=== PATIENT | male | born 1965 | race Hispanic/Latino ===

== ENCOUNTER 2020-01-24 13:40 | Inpatient (IN) | payer OTHER, SELFPAY ==
[~2020-01-24] VITALS: Ht 154.9 cm; Wt 112.7 kg
[2020-01-24 14:18] LABS: ABG BASE EXCESS -12.6 mmol/L (-2.0-3.0); ABG HCO3 12.1 mmol/L (21.0-28.0); ABG OXYGEN SATURATION 92.7 % (95.0-99.0); ABG PCO2 26 mmHg (35-48)
[2020-01-24 14:30] LABS: BASOPHILS % (AUTO) 0.2 % (0.0-5.0); HEMATOCRIT 40.5 % (42-54); LYMPHOCYTES % (AUTO) 12.5 % (21.0-51.0); MEAN CORPUSCULAR HEMOGLOBIN 29.2 pg (27.0-33.0); MEAN CORPUSCULAR HGB CONC 34.3 g/dL (32.0-36.0); MEAN CORPUSCULAR VOLUME 85.1 fL (79-99); MONOCYTES % (AUTO) 5.8 % (3.0-13.0); PLATELET COUNT (AUTO) 144 K/uL (130-400); RED BLOOD CELL COUNT(AUTO) 4.76 MIL/uL (4.50-6.20); RED CELL DISTRIBUTION WIDTH 13.2 % (11.0-15.5); WHITE BLOOD COUNT (AUTO) 6.2 K/uL (4.8-10.8)
[2020-01-24] MEDS ORDERED: DEXAMETHASONE SOD PHOSPHATE 10MG/ML 1ML VIAL ONE (14:30)
[2020-01-24] MEDS ORDERED: AZITHROMYCIN 500MG+NS 250ML 250 ML IV ONE (14:30)
[2020-01-24] MEDS ORDERED: SODIUM CHLORIDE 0.9% 50 ML IV ONE (14:30)
[2020-01-24] MEDS ORDERED: CEFTRIAXONE SODIUM 1 GM ONE (14:31)
[2020-01-24 14:43] LABS: INR 0.93 (0.85-1.15); PARTIAL THROMBOPLASTIN TIME 32.2 SEC (26.3-35.5); PROTHROMBIN TIME 10.1 SEC (9.6-11.6)
[2020-01-24 14:56] LABS: B-TYPE NATRIURETIC PEPTIDE 39 pg/mL (0-100)
[2020-01-24 14:57] LABS: ALANINE AMINOTRANSFERASE 31 U/L (12-78); ALBUMIN 2.9 g/dL (3.5-5.0); ASPARTATE AMINOTRANSFERASE 41 U/L (10-37); BILIRUBIN,TOTAL 0.4 mg/dL (0.2-1.0); CARBON DIOXIDE 17 mmol/L (21-32); CHLORIDE 95 mmol/L (101-111); CREATINE KINASE, TOTAL 52 U/L (21-232); CREATININE 4.1 mg/dL (0.5-1.5); GLOMERULAR FILTR. RATE CALC 16 mL/min (>60); MYOGLOBIN 135 ng/mL (10-92); POTASSIUM 5.4 mmol/L (3.5-5.1); SODIUM SERUM 126 mmol/L (136-145); TOTAL PROTEIN, SERUM 7.7 g/dL (6.0-8.3); TROPONIN I < 0.04 ng/mL (0.00-0.06); UREA NITROGEN, BLOOD 54 mg/dL (7-18)
[2020-01-24 14:59] LABS: GLUCOSE,RANDOM 538 mg/dL (70-105)
[2020-01-24] MEDS ORDERED: ALBUTEROL INHALER 90MCG/INH IH ONE (15:23)
[2020-01-24] MEDS ORDERED: INSULIN REGULAR, HUMAN 3ML 100 UNIT in SODIUM CHLORIDE 0.9% 99 ML IV PRN ×2 (16:45)
[2020-01-24] MEDS ORDERED: LACTULOSE 20 GM/30 ML UDCUP PO PRN (17:00)
[2020-01-24] MEDS ORDERED: ONDANSETRON HCL 4 MG/2 ML VIAL IV PRN (17:00)
[2020-01-24] MEDS ORDERED: DOXYCYCLINE 100MG+NS 250ML IV SCH (17:00)
[2020-01-24] MEDS ORDERED: ACETAMINOPHEN 325 MG TAB PO PRN ×2 (17:00)
[2020-01-24] MEDS ORDERED: ERGOCALCIFEROL (VITAMIN D2) 50,000 UNIT CAPSULE PO ONE (17:00)
[2020-01-24] MEDS: CEFTRIAXONE SODIUM 1 GM IVP SCH (17:00)
[2020-01-24 17:15] LABS: APPEARANCE,URINE CLOUDY (CLEAR); BILIRUBIN,URINE NEGATIVE (NEGATIVE); COLOR,URINE YELLOW (YELLOW); GLUCOSE, URINE (UA) >=1000 mg/dL (NEGATIVE); KETONES,URINE NEGATIVE (NEGATIVE); LEUKOCYTE ESTERASE ,URINE NEGATIVE (NEGATIVE); NITRATE,URINE POSITIVE (NEGATIVE); OCCULT BLOOD,URINE TRACE-INTACT (NEGATIVE); PROTEIN,URINE 100 mg/dL (NEGATIVE); UROBILINOGEN,URINE 0.2 mg/dL (0.2-1.0)
[2020-01-24] MEDS ORDERED: DEXTROSE 5 %-0.45 % NACL 1,000 ML IV PRN (17:23)
[2020-01-24] MEDS ORDERED: SODIUM CHLORIDE 0.9% 1000ML 1,000 ML IV SCH ×2 (17:23)
[2020-01-24 17:30] LABS: BACTERIA,URINE Few /HPF (None Seen)
[2020-01-24] MEDS ORDERED: ALBUTEROL INHALER 90MCG/INH IH PRN (17:30)
[2020-01-24] MEDS ORDERED: POTASSIUM CHLORIDE 10MEQ/100ML 100 ML IV PRN (17:30)
[2020-01-24 17:33] LABS: AMORPHOUS SEDIMENT,UR Rare /LPF (None Seen); FINE GRANULAR CASTS,URINE 0-2 /LPF (None Seen); SQUAMOUS EPITHELIAL CELL,UR Few /HPF (0-2)
[2020-01-24] MEDS ORDERED: DEXAMETHASONE SOD PHOSPHATE 10MG/ML 1ML VIAL IV SCH (17:45)
[2020-01-24] MEDS ORDERED: DOXYCYCLINE 100MG+NS 250ML 250 ML IV ONE (20:24)
[2020-01-24] MEDS: DOXYCYCLINE 100MG+NS 250ML 250 ML IV SCH (21:00)
[2020-01-24] MEDS: ENOXAPARIN SODIUM 120 MG/0.8ML SQ SCH (21:00)
[2020-01-24] MEDS: ACETYLCYSTEINE 600 MG CAPSULE PO SCH (21:00)
[2020-01-24 23:07] LABS: CREATININE 3.2 mg/dL (0.5-1.5); POTASSIUM 4.4 mmol/L (3.5-5.1)
[2020-01-25] MEDS ORDERED: DEXTROSE 5 %-0.45 % NACL 1,000 ML IV ONE (00:23)
[2020-01-25 03:08] LABS: CREATININE 2.8 mg/dL (0.5-1.5); POTASSIUM 4.5 mmol/L (3.5-5.1)
[2020-01-25] MEDS ORDERED: CEFTRIAXONE SODIUM 1 GM ONE ×2 (03:45→07:42)
[2020-01-25 04:27] LABS: ABG BASE EXCESS -9.1 mmol/L (-2.0-3.0); ABG HCO3 15.7 mmol/L (21.0-28.0); ABG OXYGEN SATURATION 81.3 % (95.0-99.0); ABG PCO2 31 mmHg (35-48)
[2020-01-25] MEDS: CEFTRIAXONE SODIUM 1 GM IVP SCH ×2 (05:00→17:00)
[2020-01-25 05:33] LABS: BASOPHILS % (AUTO) 0.1 % (0.0-5.0); LYMPHOCYTES % (AUTO) 9.2 % (21.0-51.0); MEAN CORPUSCULAR HGB CONC 34.4 g/dL (32.0-36.0); MEAN CORPUSCULAR VOLUME 84.1 fL (79-99); MONOCYTES % (AUTO) 7.5 % (3.0-13.0); NEUTROPHILS % (AUTO) 82.3 % (40.0-77.0); PLATELET COUNT (AUTO) 198 K/uL (130-400); RED BLOOD CELL COUNT(AUTO) 5.11 MIL/uL (4.50-6.20); RED CELL DISTRIBUTION WIDTH 12.9 % (11.0-15.5); WHITE BLOOD COUNT (AUTO) 17.3 K/uL (4.8-10.8)
[2020-01-25 06:11] LABS: ALBUMIN 3.1 g/dL (3.5-5.0); BILIRUBIN,TOTAL 0.7 mg/dL (0.2-1.0); CREATININE 2.7 mg/dL (0.5-1.5); CRP QUANTITATIVE 46.6 mg/L (0.00-9.0); POTASSIUM 4.6 mmol/L (3.5-5.1); TOTAL PROTEIN, SERUM 8.1 g/dL (6.0-8.3)
[2020-01-25] MEDS ORDERED: ASCORBIC ACID 500 MG TAB ONE (07:40)
[2020-01-25] MEDS ORDERED: FAMOTIDINE 20MG TAB 20 MG TAB ONE (07:41)
[2020-01-25] MEDS ORDERED: DEXAMETHASONE SOD PHOSPHATE 4 MG/ML 5ML VIAL ONE (07:41)
[2020-01-25] MEDS ORDERED: ACETYLCYSTEINE 600 MG CAPSULE ONE ×2 (07:41→19:40)
[2020-01-25] MEDS ORDERED: ZINC SULFATE 220 CAPSULE ONE (07:41)
[2020-01-25] MEDS ORDERED: DOXYCYCLINE 100MG+NS 250ML 250 ML IV ONE ×2 (07:42→19:41)
[2020-01-25] MEDS ORDERED: ENOXAPARIN SODIUM 120 MG/0.8ML SQ ONE ×2 (07:42→19:41)
[2020-01-25] MEDS: ZINC SULFATE 220 CAPSULE PO SCH (09:00)
[2020-01-25] MEDS: DEXAMETHASONE SOD PHOSPHATE 10MG/ML 1ML VIAL IV SCH ×3 (09:00→21:00)
[2020-01-25] MEDS: ACETYLCYSTEINE 600 MG CAPSULE PO SCH ×2 (09:00→21:00)
[2020-01-25] MEDS: DOXYCYCLINE 100MG+NS 250ML 250 ML IV SCH ×2 (09:00→21:00)
[2020-01-25] MEDS: FAMOTIDINE 20MG TAB 20 MG TAB PO SCH (09:00)
[2020-01-25] MEDS: ENOXAPARIN SODIUM 120 MG/0.8ML SQ SCH ×2 (09:00→21:00)
[2020-01-25] MEDS ORDERED: ENOXAPARIN SODIUM 40 MG/0.4 ML SYRINGE SQ SCH (09:00)
[2020-01-25] MEDS: ASCORBIC ACID 500 MG TAB PO SCH (09:00)
[2020-01-25] MEDS: FUROSEMIDE 10 MG/ML 4ML VIAL IV SCH (09:15)
[2020-01-25 10:06] LABS: CREATININE 2.3 mg/dL (0.5-1.5); POTASSIUM 4.7 mmol/L (3.5-5.1)
[2020-01-25 14:05] LABS: AMPHET/METH SCREEN,URINE NEGATIVE (NEGATIVE); BARBITURATE SCREEN, URINE NEGATIVE (NEGATIVE); BENZODIAZEPINES SCREEN,URINE NEGATIVE (NEGATIVE); CANNABINOID SCREEN,URINE NEGATIVE (NEGATIVE); COCAINE SCREEN,URINE NEGATIVE (NEGATIVE); OPIATE SCREEN,URINE NEGATIVE (NEGATIVE); PHENCYCLIDINE SCREEN,URINE NEGATIVE (NEGATIVE)
--- NOTE | 2020-01-25 14:19 | NUR ---
CHART CHECK COMPLETED. Pt IS A 55 Y.O. MALE ADMITTED SECONDARY TO SUSPECT COVID 19. Pt HAS A PAST MEDICAL HISTORY SIGNIFICANT FOR HTN, DM, APPENDECTOMY. Pt CURRENTLY WITH NO DIET IN PLACE. PLEASE REQUEST FORMAL SKILLED SPEECH/SWALLOW EVALUATION IF Pt PRESENTS WITH +S/S OF ASPIRATION SUCH COUGH RESPONSE, THROAT CLEAR, OR WET VOCAL QUALITY DURING P.O. Addendum: 01/25/20 at [address] Amended: Links added.
[2020-01-25 14:28] LABS: CREATININE 2.2 mg/dL (0.5-1.5); POTASSIUM 4.8 mmol/L (3.5-5.1)
[2020-01-25] MEDS ORDERED: FUROSEMIDE 10 MG/ML 4ML VIAL ONE (16:12)
[2020-01-25] MEDS ORDERED: INSULIN REGULAR, HUMAN 3ML 100 UNIT in SODIUM CHLORIDE 0.9% 99 ML IV PRN ×2 (16:15)
[2020-01-25] MEDS ORDERED: DEXAMETHASONE SOD PHOSPHATE 10MG/ML 1ML VIAL ONE (16:35)
--- NOTE | 2020-01-25 17:00 | NUR ---
IA- SPOUSE W SPOUSE FOR DC PLANNING ANGELA REDDY RN SPOKE W SPOUSE MURRAY COSTELLO FOR CM HEMANT CARRANZA IS INDEPENDENT, DRIVE, UNEMPLOYED, NO DME EXCEPT CPAP, STATS SEE DR. LUQUE PCP, DCP [place], [place] TO FOLLOW Addendum: 01/26/20 at 2058 by KARYN MANRIQUEZ RN CM Amended: Links added.
[2020-01-25] MEDS ORDERED: INSULIN HUMULIN R 100 UNIT/ML 3ML SQ SCH (18:00)
[2020-01-25] MEDS ORDERED: SODIUM BICARBONATE 650 MG TAB ONE (19:40)
[2020-01-25 20:40] LABS: CREATININE 2.3 mg/dL (0.5-1.5); POTASSIUM 4.6 mmol/L (3.5-5.1)
[2020-01-25] MEDS: SODIUM BICARBONATE 650 MG TAB PO SCH (21:00)
[2020-01-25 23:19] LABS: CREATININE 2.2 mg/dL (0.5-1.5); POTASSIUM 4.8 mmol/L (3.5-5.1)
[2020-01-26] VITALS (18 sets, daily range): BP systolic 113–182; BP diastolic 75–102
[2020-01-26] MEDS ORDERED: HYDROXYZINE HCL 25 MG TABLET ONE (00:25)
[2020-01-26 01:01] LABS: CREATININE 2.1 mg/dL (0.5-1.5); MAGNESIUM 1.6 mg/dL (1.80-2.40); POTASSIUM 4.6 mmol/L (3.5-5.1)
[2020-01-26] MEDS ORDERED: MAGNESIUM 2GM PREMIX 50ML 50 ML IV ONE (02:18)
[2020-01-26 03:42] LABS: ABG BASE EXCESS -7.4 mmol/L (-2.0-3.0); ABG HCO3 16.7 mmol/L (21.0-28.0); ABG OXYGEN SATURATION 89.7 % (95.0-99.0); ABG PCO2 31 mmHg (35-48)
[2020-01-26] MEDS: CEFTRIAXONE SODIUM 1 GM IVP SCH ×2 (05:00→15:52)
[2020-01-26] MEDS ORDERED: HYDR-4154 PO (08:07)
[2020-01-26] MEDS ORDERED: LORA-705 PO (08:07)
[2020-01-26] MEDS ORDERED: DEXA6TAB PO (08:07)
[2020-01-26] MEDS ORDERED: LOSA100T58 PO (08:07)
[2020-01-26] MEDS ORDERED: CLOP75TA32 PO (08:07)
[2020-01-26] MEDS ORDERED: METO100T14 PO (08:07)
[2020-01-26] MEDS ORDERED: ALBUT (08:07)
[2020-01-26] MEDS ORDERED: DOXYCYC MONO PO (08:07)
[2020-01-26] MEDS ORDERED: NOVOLIN SQ (08:12)
[2020-01-26] MEDS ORDERED: IPRAHFA IH (08:12)
[2020-01-26 08:22] LABS: BASOPHILS % (AUTO) 0.2 % (0.0-5.0); HEMATOCRIT 40.8 % (42-54); LYMPHOCYTES % (AUTO) 6.6 % (21.0-51.0); MEAN CORPUSCULAR HEMOGLOBIN 28.5 pg (27.0-33.0); MEAN CORPUSCULAR HGB CONC 34.1 g/dL (32.0-36.0); MEAN CORPUSCULAR VOLUME 83.6 fL (79-99); NEUTROPHILS % (AUTO) 83.7 % (40.0-77.0); PLATELET COUNT (AUTO) 205 K/uL (130-400); RED BLOOD CELL COUNT(AUTO) 4.88 MIL/uL (4.50-6.20); RED CELL DISTRIBUTION WIDTH 13.4 % (11.0-15.5); WHITE BLOOD COUNT (AUTO) 16.2 K/uL (4.8-10.8)
[2020-01-26 08:42] LABS: CRP QUANTITATIVE 37.6 mg/L (0.00-9.0); PHOSPHORUS 3.1 mg/dL (2.5-4.9); POTASSIUM 4.6 mmol/L (3.5-5.1)
[2020-01-26] MEDS ORDERED: FUROSEMIDE 10 MG/ML 4ML VIAL IV SCH (08:45)
[2020-01-26] MEDS: FAMOTIDINE 20MG TAB 20 MG TAB PO SCH (09:00)
[2020-01-26] MEDS: ZINC SULFATE 220 CAPSULE PO SCH (09:00)
[2020-01-26] MEDS: DOXYCYCLINE 100MG+NS 250ML 250 ML IV SCH ×2 (09:00→21:48)
[2020-01-26] MEDS: SODIUM BICARBONATE 650 MG TAB PO SCH ×2 (09:00→19:51)
[2020-01-26] MEDS: ENOXAPARIN SODIUM 120 MG/0.8ML SQ SCH ×2 (09:00→19:52)
[2020-01-26] MEDS: ACETYLCYSTEINE 600 MG CAPSULE PO SCH ×2 (09:00→19:51)
[2020-01-26] MEDS: DEXAMETHASONE SOD PHOSPHATE 10MG/ML 1ML VIAL IV SCH ×3 (09:00→19:48)
[2020-01-26] MEDS: ASCORBIC ACID 500 MG TAB PO SCH (09:00)
[2020-01-26] MEDS: FUROSEMIDE 10 MG/ML 4ML VIAL IV SCH (09:15)
[2020-01-26] MEDS ORDERED: FUROSEMIDE 10 MG/ML 4ML VIAL ONE (10:09)
--- NOTE | 2020-01-26 10:21 | NUR ---
RD NOTIFICATION Pt remains in ED with DKA and insulin drip. Spoke with RN, Pt to continue with NPO at this time. WBC 16.2, BUN 44, Cr 2.0, GFR 37. Suspected COVID. NRB in place. When medically feasible, Recommend advance diet as tolerated to 75gm, Renal non dialysis diet order. Recommend Vitamin C, Zinc, MVI daily supplementation when medically feasible. RD to continue to monitor. Please notify as additional nutrition concerns arise. Thank you.
[2020-01-26] MEDS ORDERED: PHARMACY COMMUNICATION MISC SCH (11:15)
[2020-01-26] MEDS ORDERED: DEXTROSE 5%-WATER 1,000 ML IV ONE (12:12)
[2020-01-26] MEDS: HYDRALAZINE HCL 20 MG/ML VIAL IV PRN (12:48)
[2020-01-26] MEDS: DEXTROSE 5 %-0.45 % NACL 1,000 ML IV PRN (12:57)
[2020-01-26 13:30] LABS: CREATININE 2.2 mg/dL (0.5-1.5); POTASSIUM 4.6 mmol/L (3.5-5.1)
[2020-01-26] MEDS ORDERED: DEXAMETHASONE SOD PHOSPHATE 4 MG/ML 1ML VIAL ONE (15:49)
[2020-01-26] MEDS ORDERED: LOSARTAN 100 MG TABLET ONE (15:59)
[2020-01-26] MEDS ORDERED: METOPROLOL TARTRATE 50 MG TAB ONE (15:59)
[2020-01-26] MEDS: METOPROLOL TARTRATE 50 MG TAB PO SCH (19:50)
[2020-01-26] MEDS: INSULIN REGULAR, HUMAN 3ML 100 UNIT in SODIUM CHLORIDE 0.9% 99 ML IV PRN ×4 (20:08→23:21)
[2020-01-27] VITALS (26 sets, daily range): BP systolic 99–235; BP diastolic 50–150
[2020-01-27] MEDS: DEXTROSE 5 %-0.45 % NACL 1,000 ML IV PRN (03:22)
[2020-01-27 04:11] LABS: ABG BASE EXCESS -6.6 mmol/L (-2.0-3.0); ABG HCO3 16.6 mmol/L (21.0-28.0); ABG OXYGEN SATURATION 93.9 % (95.0-99.0); ABG PCO2 28 mmHg (35-48)
[2020-01-27] MEDS: CEFTRIAXONE SODIUM 1 GM IVP SCH ×2 (04:35→19:22)
[2020-01-27 05:47] LABS: CRP QUANTITATIVE 28.2 mg/L (0.00-9.0)
[2020-01-27 08:10] LABS: BASOPHILS % (AUTO) 0.3 % (0.0-5.0); HEMATOCRIT 38.9 % (42-54); LYMPHOCYTES % (AUTO) 7.9 % (21.0-51.0); MEAN CORPUSCULAR HEMOGLOBIN 28.6 pg (27.0-33.0); MEAN CORPUSCULAR HGB CONC 33.9 g/dL (32.0-36.0); MEAN CORPUSCULAR VOLUME 84.2 fL (79-99); MONOCYTES % (AUTO) 6.7 % (3.0-13.0); NEUTROPHILS % (AUTO) 82.4 % (40.0-77.0); NUCLEATED RED BLOOD CELLS 0.2 % (0.0-0.19); PLATELET COUNT (AUTO) 238 K/uL (130-400); RED BLOOD CELL COUNT(AUTO) 4.62 MIL/uL (4.50-6.20); RED CELL DISTRIBUTION WIDTH 13.4 % (11.0-15.5)
[2020-01-27 08:57] LABS: ALBUMIN 2.7 g/dL (3.5-5.0); BILIRUBIN,TOTAL 0.4 mg/dL (0.2-1.0); CREATININE 2.1 mg/dL (0.5-1.5); POTASSIUM 4.7 mmol/L (3.5-5.1); TOTAL PROTEIN, SERUM 6.9 g/dL (6.0-8.3)
[2020-01-27] MEDS: FAMOTIDINE 20MG TAB 20 MG TAB PO SCH (09:08)
[2020-01-27] MEDS: ZINC SULFATE 220 CAPSULE PO SCH (09:08)
[2020-01-27] MEDS: ACETYLCYSTEINE 600 MG CAPSULE PO SCH ×2 (09:08→21:00)
[2020-01-27] MEDS: SODIUM BICARBONATE 650 MG TAB PO SCH ×2 (09:08→21:00)
[2020-01-27] MEDS: METOPROLOL TARTRATE 50 MG TAB PO SCH ×2 (09:09→21:00)
[2020-01-27] MEDS: ENOXAPARIN SODIUM 120 MG/0.8ML SQ SCH ×2 (09:09→22:03)
[2020-01-27] MEDS: ASCORBIC ACID 500 MG TAB PO SCH ×2 (09:09→09:20)
[2020-01-27] MEDS: FUROSEMIDE 10 MG/ML 4ML VIAL IV SCH (09:12)
[2020-01-27] MEDS: LOSARTAN 100 MG TABLET PO SCH (09:25)
[2020-01-27] MEDS: PHARMACY COMMUNICATION MISC SCH (10:30)
[2020-01-27] MEDS: DEXAMETHASONE SOD PHOSPHATE 10MG/ML 1ML VIAL IV SCH ×3 (12:11→22:22)
[2020-01-27] MEDS: DOXYCYCLINE 100MG+NS 250ML 250 ML IV SCH (12:12)
[2020-01-27] MEDS: HYDRALAZINE HCL 20 MG/ML VIAL IV PRN (15:11)
--- NOTE | 2020-01-27 16:17 | NUR ---
pt found standing at side of bed with 02 sat 70%. continues to take off nrb. tachypneic and labored pt back in bed. Dr. Vieira called. order for cpap 12 and 100% RT called. at bedside to set up cpap now.
[2020-01-27] MEDS ORDERED: LORAZEPAM 2 MG/ML 1 ML VIAL IVP PRN (17:00)
[2020-01-27] MEDS ORDERED: LORAZEPAM 2 MG/ML 1 ML VIAL ONE (17:01)
[2020-01-27] MEDS ORDERED: PROPOFOL 1000 MG/100 ML 100 ML IV ONE (19:48)
[2020-01-27] MEDS ORDERED: MIDAZOLAM 50MG-0.9% NS 50ML 50 ML BAG IV SCH (20:30)
[2020-01-27] MEDS ORDERED: FENTANYL 2500MCG+NS 250ML 250 ML IV ONE (20:37)
[2020-01-27] MEDS: DOXYCYCLINE HYCLATE 100 MG TABLET PO SCH (21:00)
[2020-01-27] MEDS ORDERED: SODIUM CHLORIDE 0.9% 250 ML IV ONE (23:12)
[2020-01-27 23:22] LABS: ABG BASE EXCESS -13.7 mmol/L (-2.0-3.0); ABG HCO3 14.7 mmol/L (21.0-28.0); ABG OXYGEN SATURATION 72.7 % (95.0-99.0); ABG PCO2 44 mmHg (35-48)
[2020-01-28] VITALS (38 sets, daily range): BP systolic 97–206; BP diastolic 52–107
[2020-01-28] MEDS ORDERED: ROCURONIUM BROMIDE 100 MG in SODIUM CHLORIDE 0.9% 100 ML IV SCH (00:15)
[2020-01-28] MEDS ORDERED: ROCURONIUM BROMIDE 10MG/1ML 5ML VL ONE (00:16)
[2020-01-28] MEDS ORDERED: METOPROLOL TARTRATE 1 MG/ML 5ML VIAL IV ONE (02:05)
[2020-01-28] MEDS: MIDAZOLAM 50MG-0.9% NS 50ML 50 ML IV SCH ×2 (02:44→02:45)
[2020-01-28 03:20] LABS: ABG BASE EXCESS -9.7 mmol/L (-2.0-3.0); ABG HCO3 16.4 mmol/L (21.0-28.0); ABG OXYGEN SATURATION 97.5 % (95.0-99.0); ABG PCO2 37 mmHg (35-48)
[2020-01-28] MEDS ORDERED: DEXTROSE 5%-WATER 1,000 ML IV ONE (03:43)
[2020-01-28] MEDS ORDERED: SODIUM BICARB 50MEQ 50ML VIAL ONE (03:43)
[2020-01-28] MEDS ORDERED: SODIUM BICARB 8.4% 50ML SYRING 150 MEQ in DEXTROSE 5%-WATER 1,000 ML IV SCH (03:45)
[2020-01-28] MEDS ORDERED: SODIUM CHLORIDE 0.9% 100 ML IV ONE (04:40)
[2020-01-28] MEDS: CEFTRIAXONE SODIUM 1 GM IVP SCH ×2 (05:07→17:12)
[2020-01-28 05:29] LABS: BASOPHILS % (AUTO) 0.4 % (0.0-5.0); HEMATOCRIT 37.9 % (42-54); LYMPHOCYTES % (AUTO) 6.8 % (21.0-51.0); MEAN CORPUSCULAR HEMOGLOBIN 28.3 pg (27.0-33.0); MEAN CORPUSCULAR HGB CONC 32.7 g/dL (32.0-36.0); MEAN CORPUSCULAR VOLUME 86.5 fL (79-99); MONOCYTES % (AUTO) 8.2 % (3.0-13.0); NEUTROPHILS % (AUTO) 79.6 % (40.0-77.0); PLATELET COUNT (AUTO) 245 K/uL (130-400); RED BLOOD CELL COUNT(AUTO) 4.38 MIL/uL (4.50-6.20); RED CELL DISTRIBUTION WIDTH 13.6 % (11.0-15.5); WHITE BLOOD COUNT (AUTO) 14.9 K/uL (4.8-10.8)
[2020-01-28 06:11] LABS: ALBUMIN 2.6 g/dL (3.5-5.0); BILIRUBIN,TOTAL 0.4 mg/dL (0.2-1.0); CREATININE 2.5 mg/dL (0.5-1.5); POTASSIUM 4.8 mmol/L (3.5-5.1); TOTAL PROTEIN, SERUM 6.9 g/dL (6.0-8.3)
[2020-01-28] MEDS: FUROSEMIDE 10 MG/ML 4ML VIAL IV SCH (09:15)
[2020-01-28] MEDS: METOPROLOL TARTRATE 50 MG TAB PO SCH ×2 (09:17→21:00)
[2020-01-28] MEDS: ZINC SULFATE 220 CAPSULE PO SCH (09:17)
[2020-01-28] MEDS: SODIUM BICARBONATE 650 MG TAB PO SCH ×2 (09:17→21:20)
[2020-01-28] MEDS: FAMOTIDINE 20MG TAB 20 MG TAB PO SCH (09:18)
[2020-01-28] MEDS: LOSARTAN 100 MG TABLET PO SCH (09:18)
[2020-01-28] MEDS: ACETYLCYSTEINE 600 MG CAPSULE PO SCH ×2 (09:18→21:20)
[2020-01-28] MEDS: DOXYCYCLINE HYCLATE 100 MG TABLET PO SCH ×2 (09:19→21:20)
[2020-01-28] MEDS: DEXAMETHASONE SOD PHOSPHATE 10MG/ML 1ML VIAL IV SCH (09:19)
[2020-01-28] MEDS: ENOXAPARIN SODIUM 120 MG/0.8ML SQ SCH (09:20)
[2020-01-28] MEDS ORDERED: ROCURONIUM BROMIDE 250 MG in SODIUM CHLORIDE 0.9% 250 ML IV SCH (14:15)
[2020-01-28 14:47] LABS: ABG BASE EXCESS -4.2 mmol/L (-2.0-3.0); ABG HCO3 19.9 mmol/L (21.0-28.0); ABG OXYGEN SATURATION 84.2 % (95.0-99.0); ABG PCO2 34 mmHg (35-48)
[2020-01-28 19:57] LABS: ABG BASE EXCESS -5.2 mmol/L (-2.0-3.0); ABG HCO3 18.2 mmol/L (21.0-28.0); ABG OXYGEN SATURATION 99.5 % (95.0-99.0); ABG PCO2 30 mmHg (35-48)
[2020-01-29] VITALS (29 sets, daily range): BP systolic 102–177; BP diastolic 54–95
[2020-01-29] MEDS: FENTANYL 2500MCG+NS 250ML 250 ML IV SCH ×2 (00:33→16:43)
[2020-01-29] MEDS: PHARMACY COMMUNICATION MISC SCH ×3 (02:30→18:30)
[2020-01-29] MEDS: CEFTRIAXONE SODIUM 1 GM IVP SCH ×2 (04:44→16:30)
[2020-01-29 05:28] LABS: BASOPHILS % (AUTO) 0.6 % (0.0-5.0); EOSINOPHILS % (AUTO) 0.4 % (0.0-8.0); HEMATOCRIT 41.1 % (42-54); LYMPHOCYTES % (AUTO) 5.7 % (21.0-51.0); MEAN CORPUSCULAR HEMOGLOBIN 28.9 pg (27.0-33.0); MEAN CORPUSCULAR HGB CONC 34.1 g/dL (32.0-36.0); MEAN CORPUSCULAR VOLUME 84.9 fL (79-99); MONOCYTES % (AUTO) 5.4 % (3.0-13.0); NEUTROPHILS % (AUTO) 82.5 % (40.0-77.0); PLATELET COUNT (AUTO) 238 K/uL (130-400); RED BLOOD CELL COUNT(AUTO) 4.84 MIL/uL (4.50-6.20); RED CELL DISTRIBUTION WIDTH 13.3 % (11.0-15.5)
[2020-01-29 05:37] LABS: ALBUMIN 2.3 g/dL (3.5-5.0); BILIRUBIN,TOTAL 0.8 mg/dL (0.2-1.0); CREATININE 1.6 mg/dL (0.5-1.5); CRP QUANTITATIVE 11.2 mg/L (0.00-9.0); POTASSIUM 3.7 mmol/L (3.5-5.1)
[2020-01-29] MEDS: METOPROLOL TARTRATE 50 MG TAB PO SCH ×2 (08:56→20:43)
[2020-01-29] MEDS: ZINC SULFATE 220 CAPSULE PO SCH (08:56)
[2020-01-29] MEDS: DOXYCYCLINE HYCLATE 100 MG TABLET PO SCH ×2 (08:56→20:42)
[2020-01-29] MEDS: ASCORBIC ACID 500 MG TAB PO SCH (08:56)
[2020-01-29] MEDS: DEXAMETHASONE SOD PHOSPHATE 4 MG/ML 1ML VIAL IVP SCH (08:56)
[2020-01-29] MEDS: ACETYLCYSTEINE 600 MG CAPSULE PO SCH ×2 (08:56→20:42)
[2020-01-29] MEDS: LOSARTAN 100 MG TABLET PO SCH (08:56)
[2020-01-29] MEDS: ENOXAPARIN SODIUM 100 MG/1 ML SQ SCH (08:56)
[2020-01-29] MEDS: FAMOTIDINE 20MG TAB 20 MG TAB PO SCH (08:56)
[2020-01-29] MEDS: FUROSEMIDE 10 MG/ML 4ML VIAL IV SCH (08:56)
[2020-01-29] MEDS: SODIUM BICARBONATE 650 MG TAB PO SCH ×2 (08:56→20:42)
[2020-01-29 08:59] LABS: MAGNESIUM 2.1 mg/dL (1.80-2.40)
[2020-01-29] MEDS ORDERED: FUROSEMIDE 10 MG/ML 4ML VIAL IV SCH (09:45)
--- NOTE | 2020-01-29 17:00 | NUR ---
pt placed in prone position by RN and RT. pt tolerated well.
[2020-01-29] MEDS: MIDAZOLAM 50MG-0.9% NS 50ML 50 ML IV SCH (19:15)
[2020-01-30] VITALS (23 sets, daily range): BP systolic 90–190; BP diastolic 51–97
[2020-01-30] MEDS: PHARMACY COMMUNICATION MISC SCH ×3 (02:30→18:30)
[2020-01-30] MEDS: CEFTRIAXONE SODIUM 1 GM IVP SCH ×2 (04:51→16:39)
[2020-01-30 04:52] LABS: BASOPHILS % (AUTO) 0.7 % (0.0-5.0); EOSINOPHILS % (AUTO) 0.1 % (0.0-8.0); HEMATOCRIT 40.1 % (42-54); LYMPHOCYTES % (AUTO) 6.8 % (21.0-51.0); MEAN CORPUSCULAR HEMOGLOBIN 28.7 pg (27.0-33.0); MEAN CORPUSCULAR HGB CONC 33.2 g/dL (32.0-36.0); MEAN CORPUSCULAR VOLUME 86.4 fL (79-99); MONOCYTES % (AUTO) 8.2 % (3.0-13.0); NEUTROPHILS % (AUTO) 76.8 % (40.0-77.0); NUCLEATED RED BLOOD CELLS 0.2 % (0.0-0.19); PLATELET COUNT (AUTO) 261 K/uL (130-400); RED BLOOD CELL COUNT(AUTO) 4.64 MIL/uL (4.50-6.20); RED CELL DISTRIBUTION WIDTH 14.3 % (11.0-15.5); WHITE BLOOD COUNT (AUTO) 10.3 K/uL (4.8-10.8)
[2020-01-30 05:17] LABS: ALBUMIN 2.1 g/dL (3.5-5.0); BILIRUBIN,TOTAL 0.4 mg/dL (0.2-1.0); CREATININE 2.3 mg/dL (0.5-1.5); CRP QUANTITATIVE 35.7 mg/L (0.00-9.0); POTASSIUM 4.4 mmol/L (3.5-5.1); TOTAL PROTEIN, SERUM 6.3 g/dL (6.0-8.3)
[2020-01-30] MEDS: ENOXAPARIN SODIUM 100 MG/1 ML SQ SCH (08:21)
[2020-01-30] MEDS: ASCORBIC ACID 500 MG TAB PO SCH (08:21)
[2020-01-30] MEDS: DEXAMETHASONE SOD PHOSPHATE 4 MG/ML 1ML VIAL IVP SCH (08:22)
[2020-01-30] MEDS: ZINC SULFATE 220 CAPSULE PO SCH (08:22)
[2020-01-30] MEDS: FAMOTIDINE 20MG TAB 20 MG TAB PO SCH (08:22)
[2020-01-30] MEDS: SODIUM BICARBONATE 650 MG TAB PO SCH ×2 (08:22→21:00)
[2020-01-30] MEDS: DOXYCYCLINE HYCLATE 100 MG TABLET PO SCH ×2 (08:22→21:00)
[2020-01-30] MEDS: ACETYLCYSTEINE 600 MG CAPSULE PO SCH ×2 (08:22→21:00)
[2020-01-30] MEDS: FUROSEMIDE 10 MG/ML 4ML VIAL IV SCH (08:22)
[2020-01-30] MEDS: METOPROLOL TARTRATE 50 MG TAB PO SCH ×2 (08:23→10:26)
[2020-01-30] MEDS: FAMOTIDINE/PF 20 MG/2 ML VIAL IV SCH (09:30)
[2020-01-30] MEDS ORDERED: PHARMACY COMMUNICATION**REMDESIVIR ORDER MISC SCH (09:30)
[2020-01-30] MEDS: FENTANYL 2500MCG+NS 250ML 250 ML IV SCH (15:21)
[2020-01-30] MEDS: MIDAZOLAM 50MG-0.9% NS 50ML 50 ML IV SCH (15:21)
[2020-01-30 17:26] LABS: ABG BASE EXCESS -8.4 mmol/L (-2.0-3.0); ABG HCO3 18.2 mmol/L (21.0-28.0); ABG OXYGEN SATURATION 98.2 % (95.0-99.0); ABG PCO2 42 mmHg (35-48)
[2020-01-30 19:25] LABS: CREATININE 2.3 mg/dL (0.5-1.5); POTASSIUM 4.8 mmol/L (3.5-5.1)
[2020-01-30 19:29] LABS: ALBUMIN 2.4 g/dL (3.5-5.0); BILIRUBIN,TOTAL 0.8 mg/dL (0.2-1.0)
[2020-01-31] VITALS (21 sets, daily range): BP systolic 104–176; BP diastolic 64–93
[2020-01-31] MEDS: PHARMACY COMMUNICATION MISC SCH ×4 (02:30→20:36)
[2020-01-31 04:37] LABS: HEMATOCRIT 41.9 % (42-54); MEAN CORPUSCULAR HEMOGLOBIN 28.8 pg (27.0-33.0); MEAN CORPUSCULAR HGB CONC 32.9 g/dL (32.0-36.0); MEAN CORPUSCULAR VOLUME 87.3 fL (79-99); NUCLEATED RED BLOOD CELLS 0.2 % (0.0-0.19); PLATELET COUNT (AUTO) 273 K/uL (130-400); RED CELL DISTRIBUTION WIDTH 14.1 % (11.0-15.5); WHITE BLOOD COUNT (AUTO) 11.6 K/uL (4.8-10.8)
[2020-01-31 04:56] LABS: ALBUMIN 2.2 g/dL (3.5-5.0); BILIRUBIN,TOTAL 0.8 mg/dL (0.2-1.0); CREATININE 2.2 mg/dL (0.5-1.5); CRP QUANTITATIVE 37.4 mg/L (0.00-9.0); POTASSIUM 4.5 mmol/L (3.5-5.1); TOTAL PROTEIN, SERUM 6.3 g/dL (6.0-8.3)
[2020-01-31 05:10] LABS: LYMPHOCYTES % (MANUAL) 5 % (22-44); MONOCYTES % (MANUAL) 8 % (2-9); SEGMENTED NEUTROPHILS % 87 % (40-70)
[2020-01-31 05:11] LABS: MAN.DIFF COMMENT-IMPRESSION MANUAL DIFFERENTIAL; PLATELET MORPHOLOGY COMMENT ADEQUATE
[2020-01-31 07:17] LABS: ABG BASE EXCESS -7.4 mmol/L (-2.0-3.0); ABG HCO3 17.7 mmol/L (21.0-28.0); ABG OXYGEN SATURATION 97.4 % (95.0-99.0); ABG PCO2 35 mmHg (35-48)
[2020-01-31] MEDS: METOPROLOL TARTRATE 50 MG TAB PO SCH ×2 (09:00→20:36)
[2020-01-31] MEDS: FUROSEMIDE 10 MG/ML 4ML VIAL IV SCH (09:15)
[2020-01-31] MEDS: DEXAMETHASONE SOD PHOSPHATE 4 MG/ML 1ML VIAL IVP SCH (10:51)
[2020-01-31] MEDS: FAMOTIDINE/PF 20 MG/2 ML VIAL IV SCH (10:51)
[2020-01-31] MEDS: ENOXAPARIN SODIUM 60 MG/0.6 ML SQ SCH (10:54)
[2020-01-31] MEDS: CEFTRIAXONE SODIUM 1 GM IVP SCH (12:48)
[2020-01-31] MEDS: DOXYCYCLINE HYCLATE 100 MG TABLET PO SCH ×2 (12:49→20:36)
[2020-01-31] MEDS: ASCORBIC ACID 500 MG TAB PO SCH (12:49)
[2020-01-31] MEDS: SODIUM BICARBONATE 650 MG TAB PO SCH ×2 (12:49→20:36)
[2020-01-31] MEDS: ACETYLCYSTEINE 600 MG CAPSULE PO SCH ×2 (12:49→20:36)
[2020-01-31] MEDS: ZINC SULFATE 220 CAPSULE PO SCH (12:50)
[2020-01-31] MEDS: FENTANYL 2500MCG+NS 250ML 250 ML IV SCH (15:12)
[2020-02-01] VITALS (23 sets, daily range): BP systolic 106–178; BP diastolic 48–96
[2020-02-01 04:58] LABS: BASOPHILS % (AUTO) 0.7 % (0.0-5.0); HEMATOCRIT 42.4 % (42-54); LYMPHOCYTES % (AUTO) 5.2 % (21.0-51.0); MEAN CORPUSCULAR HEMOGLOBIN 28.4 pg (27.0-33.0); MEAN CORPUSCULAR HGB CONC 32.3 g/dL (32.0-36.0); MEAN CORPUSCULAR VOLUME 87.8 fL (79-99); MONOCYTES % (AUTO) 8.7 % (3.0-13.0); NEUTROPHILS % (AUTO) 78.5 % (40.0-77.0); NUCLEATED RED BLOOD CELLS 0.3 % (0.0-0.19); PLATELET COUNT (AUTO) 268 K/uL (130-400); RED BLOOD CELL COUNT(AUTO) 4.83 MIL/uL (4.50-6.20); RED CELL DISTRIBUTION WIDTH 14.3 % (11.0-15.5); WHITE BLOOD COUNT (AUTO) 11.1 K/uL (4.8-10.8)
[2020-02-01 05:41] LABS: ALBUMIN 2.2 g/dL (3.5-5.0); BILIRUBIN,TOTAL 1.3 mg/dL (0.2-1.0); CREATININE 2.3 mg/dL (0.5-1.5); CRP QUANTITATIVE 93.1 mg/L (0.00-9.0); POTASSIUM 4.9 mmol/L (3.5-5.1); TOTAL PROTEIN, SERUM 6.6 g/dL (6.0-8.3)
[2020-02-01] MEDS: HYDRALAZINE HCL 20 MG/ML VIAL IV PRN (05:59)
[2020-02-01 07:41] LABS: ABG BASE EXCESS -7.4 mmol/L (-2.0-3.0); ABG OXYGEN SATURATION 84.3 % (95.0-99.0); ABG PCO2 42 mmHg (35-48)
[2020-02-01] MEDS: FAMOTIDINE/PF 20 MG/2 ML VIAL IV SCH (08:18)
[2020-02-01] MEDS: DEXAMETHASONE SOD PHOSPHATE 4 MG/ML 1ML VIAL IVP SCH (08:18)
[2020-02-01] MEDS: DOXYCYCLINE HYCLATE 100 MG TABLET PO SCH ×2 (08:18→20:18)
[2020-02-01] MEDS: ASCORBIC ACID 500 MG TAB PO SCH (08:19)
[2020-02-01] MEDS: ZINC SULFATE 220 CAPSULE PO SCH (08:19)
[2020-02-01] MEDS: ACETYLCYSTEINE 600 MG CAPSULE PO SCH ×2 (08:19→20:18)
[2020-02-01] MEDS: METOPROLOL TARTRATE 50 MG TAB PO SCH (08:19)
[2020-02-01] MEDS: SODIUM BICARBONATE 650 MG TAB PO SCH ×2 (08:19→20:18)
[2020-02-01] MEDS: ENOXAPARIN SODIUM 60 MG/0.6 ML SQ SCH (08:20)
[2020-02-01] MEDS: FUROSEMIDE 10 MG/ML 4ML VIAL IV SCH (09:15)
[2020-02-01] MEDS ORDERED: AMLODIPINE BESYLATE 5 MG TAB PO SCH (10:00)
[2020-02-01] MEDS ORDERED: INSULIN NPH 100 UNIT/ML 3ML SQ SCH ×2 (10:00→21:00)
[2020-02-01] MEDS: LINEZOLID 600 MG/ISO-OSM 300 ML IV SCH ×2 (10:06→20:17)
[2020-02-01] MEDS: PHARMACY COMMUNICATION MISC SCH ×3 (10:06→20:21)
[2020-02-01] MEDS: MEROPENEM 1 GM VIAL IVP SCH ×2 (10:25→20:17)
[2020-02-01] MEDS: MIDAZOLAM 100MG-0.9% NS 100ML 100ML BAG IV SCH (12:27)
[2020-02-01] MEDS: INSULIN HUMULIN R 100 UNIT/ML 3ML SQ SCH ×2 (12:32→17:31)
[2020-02-01] MEDS ORDERED: METOPROLOL TARTRATE 1 MG/ML 5ML VIAL IV PRN (14:00)
[2020-02-01] MEDS: METHYLPREDNISOLONE SOD SUCC 125MG/2ML VIAL IVP SCH ×2 (14:03→20:18)
[2020-02-01] MEDS ORDERED: PROPOFOL 1000 MG/100 ML IV PRN (17:15)
[2020-02-01] MEDS: PROPOFOL 1000 MG/100 ML 100 ML IV SCH (17:45)
[2020-02-01] MEDS: FENTANYL 2500MCG+NS 250ML 250 ML IV SCH (18:09)
[2020-02-01] MEDS: METOPROLOL TARTRATE 1 MG/ML 5ML VIAL IV SCH (20:20)
[2020-02-02] VITALS (18 sets, daily range): BP systolic 105–146; BP diastolic 54–90
[2020-02-02] MEDS: INSULIN HUMULIN R 100 UNIT/ML 3ML SQ SCH ×6 (00:12→17:42)
[2020-02-02] MEDS: PROPOFOL 1000 MG/100 ML 100 ML IV SCH ×5 (00:15→17:55)
[2020-02-02] MEDS: METOPROLOL TARTRATE 1 MG/ML 5ML VIAL IV SCH ×4 (03:00→19:55)
[2020-02-02 04:11] LABS: BASOPHILS % (AUTO) 0.4 % (0.0-5.0); HEMATOCRIT 37.2 % (42-54); MEAN CORPUSCULAR HEMOGLOBIN 29.1 pg (27.0-33.0); MEAN CORPUSCULAR HGB CONC 32.3 g/dL (32.0-36.0); MEAN CORPUSCULAR VOLUME 90.3 fL (79-99); MONOCYTES % (AUTO) 3.9 % (3.0-13.0); NEUTROPHILS % (AUTO) 89.1 % (40.0-77.0); PLATELET COUNT (AUTO) 227 K/uL (130-400); RED BLOOD CELL COUNT(AUTO) 4.12 MIL/uL (4.50-6.20); RED CELL DISTRIBUTION WIDTH 14.7 % (11.0-15.5); WHITE BLOOD COUNT (AUTO) 10.6 K/uL (4.8-10.8)
[2020-02-02 04:31] LABS: BILIRUBIN,TOTAL 0.6 mg/dL (0.2-1.0); CREATININE 2.5 mg/dL (0.5-1.5); CRP QUANTITATIVE 87.2 mg/L (0.00-9.0); POTASSIUM 5.8 mmol/L (3.5-5.1); TOTAL PROTEIN, SERUM 6.1 g/dL (6.0-8.3)
[2020-02-02] MEDS ORDERED: INSULIN HUMULIN R 100 UNIT/ML 3ML SQ SCH ×3 (07:30→16:30)
[2020-02-02 07:34] LABS: ABG BASE EXCESS -9.5 mmol/L (-2.0-3.0); ABG HCO3 17.8 mmol/L (21.0-28.0); ABG OXYGEN SATURATION 85.4 % (95.0-99.0); ABG PCO2 44 mmHg (35-48)
[2020-02-02] MEDS: METHYLPREDNISOLONE SOD SUCC 125MG/2ML VIAL IVP SCH (09:00)
[2020-02-02] MEDS: AMLODIPINE BESYLATE 5 MG TAB PO SCH (09:00)
[2020-02-02] MEDS ORDERED: INSULIN NPH 100 UNIT/ML 3ML SQ SCH (09:00)
[2020-02-02] MEDS: LINEZOLID 600 MG/ISO-OSM 300 ML IV SCH ×2 (09:11→19:53)
[2020-02-02] MEDS: DOXYCYCLINE HYCLATE 100 MG TABLET PO SCH ×2 (09:12→19:54)
[2020-02-02] MEDS: SODIUM BICARBONATE 650 MG TAB PO SCH ×2 (09:12→19:54)
[2020-02-02] MEDS: ACETYLCYSTEINE 600 MG CAPSULE PO SCH ×2 (09:12→19:54)
[2020-02-02] MEDS: ZINC SULFATE 220 CAPSULE PO SCH (09:12)
[2020-02-02] MEDS: FLUCONAZOLE 100 MG TAB NG SCH ×2 (09:12→19:54)
[2020-02-02] MEDS: ASCORBIC ACID 500 MG TAB PO SCH (09:12)
[2020-02-02] MEDS: MEROPENEM 1 GM VIAL IVP SCH ×2 (09:13→19:54)
[2020-02-02] MEDS: ENOXAPARIN SODIUM 60 MG/0.6 ML SQ SCH (09:13)
[2020-02-02] MEDS: FUROSEMIDE 10 MG/ML 4ML VIAL IV SCH (09:15)
[2020-02-02] MEDS: INSULIN NPH 100 UNIT/ML 3ML SQ SCH (09:25)
[2020-02-02] MEDS: PHARMACY COMMUNICATION MISC SCH ×2 (09:28→13:11)
[2020-02-02] MEDS: FAMOTIDINE/PF 20 MG/2 ML VIAL IV SCH (09:29)
[2020-02-02] MEDS ORDERED: DEXTROSE 50%-WATER 50 ML DISP.SYRIN IV SCH (09:45)
[2020-02-02] MEDS ORDERED: SODIUM BICARB 50MEQ 50ML VIAL IV SCH (09:45)
[2020-02-02] MEDS ORDERED: FUROSEMIDE 10 MG/ML 4ML VIAL IV SCH (09:45)
[2020-02-02] MEDS ORDERED: INSULIN HUMULIN R 100 UNIT/ML 3ML IV SCH (09:45)
[2020-02-02] MEDS ORDERED: SODIUM POLYSTYRENE SULFONATE 15 GM/60 ML ML PO SCH (09:45)
[2020-02-02] MEDS: DEXAMETHASONE SOD PHOSPHATE 4 MG/ML 1ML VIAL IV SCH (10:48)
[2020-02-02] MEDS: MIDAZOLAM 100MG-0.9% NS 100ML 100ML BAG IV SCH (11:15)
[2020-02-02] MEDS: DEXMEDETOMIDINE HCL 200 MCG in SODIUM CHLORIDE 0.9% 50 ML IV SCH ×2 (14:00→17:56)
[2020-02-02] MEDS: FENTANYL 2500MCG+NS 250ML 250 ML IV SCH (15:51)
--- NOTE | 2020-02-02 16:21 | NUR ---
PT WAS PRONNED. vs STABLE. Addendum: 02/02/20 at 1623 by BRYCE Levy RN Amended: Links added.
[2020-02-02 21:31] LABS: INR 0.91 (0.85-1.15); PARTIAL THROMBOPLASTIN TIME 31.7 SEC (26.3-35.5); PROTHROMBIN TIME 9.9 SEC (9.6-11.6)
[2020-02-03] VITALS (21 sets, daily range): BP systolic 120–161; BP diastolic 60–95
--- NOTE | 2020-02-03 00:35 | NUR ---
6 FR. 3 LUMEN PICC INSERTED IN RIGHT BASILIC VEIN, USING ASEPTIC TECHNIQUE. CATHETER IS UNCUT AT 55CM (45 CM INTERNAL, 10CM EXTERNAL) ARM CIRCUMFERENCE 35CM. 3 LUMENS HAVE GOOD BLOOD RETURN AND FLUSHED EASILY AND CLAMPED.
[2020-02-03] MEDS: PHARMACY COMMUNICATION MISC SCH (02:30)
[2020-02-03] MEDS: METOPROLOL TARTRATE 1 MG/ML 5ML VIAL IV SCH ×4 (03:00→20:21)
[2020-02-03] MEDS: INSULIN HUMULIN R 100 UNIT/ML 3ML SQ SCH ×5 (05:09→17:40)
[2020-02-03 06:31] LABS: BASOPHILS % (AUTO) 0.3 % (0.0-5.0); HEMATOCRIT 37.3 % (42-54); LYMPHOCYTES % (AUTO) 4.9 % (21.0-51.0); MEAN CORPUSCULAR HEMOGLOBIN 28.8 pg (27.0-33.0); MEAN CORPUSCULAR HGB CONC 32.4 g/dL (32.0-36.0); MEAN CORPUSCULAR VOLUME 88.8 fL (79-99); MONOCYTES % (AUTO) 6.8 % (3.0-13.0); NUCLEATED RED BLOOD CELLS 0.3 % (0.0-0.19); PLATELET COUNT (AUTO) 209 K/uL (130-400); RED CELL DISTRIBUTION WIDTH 14.3 % (11.0-15.5); WHITE BLOOD COUNT (AUTO) 11.8 K/uL (4.8-10.8)
[2020-02-03 06:49] LABS: ALBUMIN 1.9 g/dL (3.5-5.0); BILIRUBIN,TOTAL 0.5 mg/dL (0.2-1.0); POTASSIUM 4.4 mmol/L (3.5-5.1); TOTAL PROTEIN, SERUM 6.1 g/dL (6.0-8.3)
[2020-02-03] MEDS: ENOXAPARIN SODIUM 60 MG/0.6 ML SQ SCH (09:15)
[2020-02-03] MEDS: FAMOTIDINE/PF 20 MG/2 ML VIAL IV SCH (09:16)
[2020-02-03] MEDS: ACETYLCYSTEINE 600 MG CAPSULE PO SCH ×2 (09:16→20:20)
[2020-02-03] MEDS: MEROPENEM 1 GM VIAL IVP SCH ×2 (09:16→20:20)
[2020-02-03] MEDS: FLUCONAZOLE 100 MG TAB NG SCH ×2 (09:16→20:20)
[2020-02-03] MEDS: ZINC SULFATE 220 CAPSULE PO SCH (09:16)
[2020-02-03] MEDS: DOXYCYCLINE HYCLATE 100 MG TABLET PO SCH ×2 (09:16→20:20)
[2020-02-03] MEDS: SODIUM BICARBONATE 650 MG TAB PO SCH ×2 (09:16→20:20)
[2020-02-03] MEDS: ASCORBIC ACID 500 MG TAB PO SCH (09:16)
[2020-02-03] MEDS: DEXAMETHASONE SOD PHOSPHATE 4 MG/ML 1ML VIAL IV SCH (09:17)
[2020-02-03] MEDS: LINEZOLID 600 MG/ISO-OSM 300 ML IV SCH ×2 (09:17→20:20)
[2020-02-03] MEDS: DEXMEDETOMIDINE HCL 200 MCG in SODIUM CHLORIDE 0.9% 50 ML IV SCH ×2 (09:18→12:38)
[2020-02-03 09:32] LABS: ABG BASE EXCESS -5.4 mmol/L (-2.0-3.0); ABG HCO3 21.1 mmol/L (21.0-28.0); ABG OXYGEN SATURATION 82.9 % (95.0-99.0); ABG PCO2 45 mmHg (35-48)
[2020-02-03] MEDS: INSULIN NPH 100 UNIT/ML 3ML SQ SCH (09:40)
[2020-02-03] MEDS: AMLODIPINE BESYLATE 5 MG TAB PO SCH (10:01)
[2020-02-03] MEDS: MIDAZOLAM 100MG-0.9% NS 100ML 100ML BAG IV SCH (10:05)
--- NOTE | 2020-02-03 10:08 | NUR ---
Wake up assessment was done, pt got very agitated. Does not follow commands. Infusions restarted. Mittens for safety were placed on. ABG was done. Results were reported to MD. CPAP mode is at this time. VS stable.
[2020-02-03] MEDS: PROPOFOL 1000 MG/100 ML 100 ML IV SCH ×3 (12:37→20:19)
[2020-02-03] MEDS: FENTANYL 2500MCG+NS 250ML 250 ML IV SCH ×2 (12:38→20:20)
[2020-02-03] MEDS ORDERED: DEXMEDETOMIDINE HCL 400 MCG in SODIUM CHLORIDE 0.9% 100 ML IV SCH (15:45)
[2020-02-04] VITALS (24 sets, daily range): BP systolic 115–172; BP diastolic 65–93
[2020-02-04] MEDS: INSULIN HUMULIN R 100 UNIT/ML 3ML SQ SCH ×4 (00:11→18:24)
[2020-02-04] MEDS: METOPROLOL TARTRATE 1 MG/ML 5ML VIAL IV SCH ×4 (02:04→19:48)
[2020-02-04 05:45] LABS: BASOPHILS % (AUTO) 0.4 % (0.0-5.0); HEMATOCRIT 39.2 % (42-54); MEAN CORPUSCULAR HEMOGLOBIN 28.8 pg (27.0-33.0); MEAN CORPUSCULAR HGB CONC 32.1 g/dL (32.0-36.0); MEAN CORPUSCULAR VOLUME 89.5 fL (79-99); MONOCYTES % (AUTO) 6.5 % (3.0-13.0); NUCLEATED RED BLOOD CELLS 0.3 % (0.0-0.19); PLATELET COUNT (AUTO) 213 K/uL (130-400); RED BLOOD CELL COUNT(AUTO) 4.38 MIL/uL (4.50-6.20); RED CELL DISTRIBUTION WIDTH 14.4 % (11.0-15.5); WHITE BLOOD COUNT (AUTO) 11.9 K/uL (4.8-10.8)
[2020-02-04] MEDS: INSULIN NPH 100 UNIT/ML 3ML SQ SCH (06:28)
[2020-02-04 08:19] LABS: ABG BASE EXCESS -4.4 mmol/L (-2.0-3.0); ABG HCO3 22.2 mmol/L (21.0-28.0); ABG OXYGEN SATURATION 77.9 % (95.0-99.0); ABG PCO2 46 mmHg (35-48)
[2020-02-04 08:32] LABS: ALBUMIN 1.9 g/dL (3.5-5.0); BILIRUBIN,TOTAL 0.4 mg/dL (0.2-1.0); CREATININE 1.8 mg/dL (0.5-1.5); CRP QUANTITATIVE 77.1 mg/L (0.00-9.0); POTASSIUM 5.2 mmol/L (3.5-5.1); TOTAL PROTEIN, SERUM 6.1 g/dL (6.0-8.3)
[2020-02-04] MEDS: MEROPENEM 1 GM VIAL IVP SCH ×2 (08:36→19:48)
[2020-02-04] MEDS: ACETYLCYSTEINE 600 MG CAPSULE PO SCH ×2 (08:36→19:44)
[2020-02-04] MEDS: ENOXAPARIN SODIUM 60 MG/0.6 ML SQ SCH (08:36)
[2020-02-04] MEDS: SODIUM BICARBONATE 650 MG TAB PO SCH ×2 (08:36→19:44)
[2020-02-04] MEDS: ASCORBIC ACID 500 MG TAB PO SCH (08:36)
[2020-02-04] MEDS: LINEZOLID 600 MG/ISO-OSM 300 ML IV SCH ×2 (08:36→19:44)
[2020-02-04] MEDS: MIDAZOLAM 100MG-0.9% NS 100ML 100ML BAG IV SCH (08:37)
[2020-02-04] MEDS: DOXYCYCLINE HYCLATE 100 MG TABLET PO SCH ×2 (08:37→19:44)
[2020-02-04] MEDS: AMLODIPINE BESYLATE 5 MG TAB PO SCH (08:37)
[2020-02-04] MEDS: FLUCONAZOLE 100 MG TAB NG SCH ×2 (08:37→19:44)
[2020-02-04] MEDS: ZINC SULFATE 220 CAPSULE PO SCH (08:38)
[2020-02-04] MEDS: PROPOFOL 1000 MG/100 ML 100 ML IV SCH ×2 (08:46→23:45)
[2020-02-04] MEDS ORDERED: DEXMEDETOMIDINE HCL 400 MCG in SODIUM CHLORIDE 0.9% 100 ML IV SCH (09:00)
[2020-02-04] MEDS: FAMOTIDINE/PF 20 MG/2 ML VIAL IV SCH (09:04)
[2020-02-04] MEDS: FENTANYL 2500MCG+NS 250ML 250 ML IV SCH ×2 (09:05→21:24)
[2020-02-04] MEDS: DEXAMETHASONE SOD PHOSPHATE 4 MG/ML 1ML VIAL IV SCH (09:53)
[2020-02-04] MEDS: DEXMEDETOMIDINE HCL 200 MCG in SODIUM CHLORIDE 0.9% 50 ML IV SCH (09:54)
[2020-02-04 10:43] LABS: ABG BASE EXCESS -4.9 mmol/L (-2.0-3.0); ABG HCO3 21.4 mmol/L (21.0-28.0); ABG OXYGEN SATURATION 91.9 % (95.0-99.0); ABG PCO2 44 mmHg (35-48)
[2020-02-04] MEDS ORDERED: DOCUSATE NA 100MG/10ML UDCUP PO SCH (11:30)
--- NOTE | 2020-02-04 12:44 | NUR ---
WAS CALLED AND UPDATED ABOUT STATUS. ALL QUESTIONS WERE ANSWERED
--- NOTE | 2020-02-04 16:07 | NUR ---
NOTIFIED ABOUT CHANGES ON THE MORNING XRAY. ETT TUBING CHANGED, TUBE ADVANCED 2 CM. 25 AT THE LIPS AT THIS TIME. XRAY ORDERED STAT. PT SEEMS NOT IN DISTRESS. vs STABLE
[2020-02-04] MEDS ORDERED: SODIUM POLYSTYRENE SULFONATE 15 GM/60 ML ML PO SCH (21:15)
[2020-02-05] VITALS (37 sets, daily range): BP systolic 128–167; BP diastolic 72–90
[2020-02-05] MEDS: INSULIN HUMULIN R 100 UNIT/ML 3ML SQ SCH ×6 (00:22→19:57)
[2020-02-05] MEDS: METOPROLOL TARTRATE 1 MG/ML 5ML VIAL IV SCH ×4 (03:04→19:28)
[2020-02-05 05:33] LABS: HEMATOCRIT 38.8 % (42-54); MEAN CORPUSCULAR HEMOGLOBIN 28.9 pg (27.0-33.0); MEAN CORPUSCULAR HGB CONC 32.5 g/dL (32.0-36.0); NUCLEATED RED BLOOD CELLS 0.2 % (0.0-0.19); PLATELET COUNT (AUTO) 215 K/uL (130-400); RED BLOOD CELL COUNT(AUTO) 4.36 MIL/uL (4.50-6.20); RED CELL DISTRIBUTION WIDTH 14.2 % (11.0-15.5); WHITE BLOOD COUNT (AUTO) 13.6 K/uL (4.8-10.8)
[2020-02-05 05:49] LABS: ALBUMIN 1.9 g/dL (3.5-5.0); BILIRUBIN,TOTAL 0.4 mg/dL (0.2-1.0); CREATININE 1.8 mg/dL (0.5-1.5); POTASSIUM 5.3 mmol/L (3.5-5.1)
[2020-02-05] MEDS: INSULIN NPH 100 UNIT/ML 3ML SQ SCH (07:15)
[2020-02-05 08:26] LABS: LYMPHOCYTES % (MANUAL) 3 % (22-44); MAN.DIFF COMMENT-IMPRESSION MANUAL DIFFERENTIAL; MONOCYTES % (MANUAL) 6 % (2-9); SEGMENTED NEUTROPHILS % 91 % (40-70)
[2020-02-05 08:27] LABS: PLATELET MORPHOLOGY COMMENT ADEQUATE
[2020-02-05] MEDS: FAMOTIDINE/PF 20 MG/2 ML VIAL IV SCH (09:00)
[2020-02-05 09:13] LABS: ABG HCO3 21.1 mmol/L (21.0-28.0); ABG OXYGEN SATURATION 78.8 % (95.0-99.0); ABG PCO2 43 mmHg (35-48)
[2020-02-05] MEDS: MIDAZOLAM 100MG-0.9% NS 100ML 100ML BAG IV SCH (11:15)
[2020-02-05] MEDS: MEROPENEM 1 GM VIAL IVP SCH ×2 (11:19→19:29)
[2020-02-05] MEDS: AMLODIPINE BESYLATE 5 MG TAB PO SCH (11:20)
[2020-02-05] MEDS: FLUCONAZOLE 100 MG TAB NG SCH ×2 (11:20→19:27)
[2020-02-05] MEDS: ACETYLCYSTEINE 600 MG CAPSULE PO SCH ×2 (11:20→19:28)
[2020-02-05] MEDS: DOXYCYCLINE HYCLATE 100 MG TABLET PO SCH ×2 (11:20→19:28)
[2020-02-05] MEDS: ZINC SULFATE 220 CAPSULE PO SCH (11:21)
[2020-02-05] MEDS: SODIUM BICARBONATE 650 MG TAB PO SCH ×2 (11:21→19:27)
[2020-02-05] MEDS: ENOXAPARIN SODIUM 60 MG/0.6 ML SQ SCH (11:21)
[2020-02-05] MEDS: ASCORBIC ACID 500 MG TAB PO SCH (11:21)
[2020-02-05] MEDS: LINEZOLID 600 MG/ISO-OSM 300 ML IV SCH ×2 (11:22→19:27)
[2020-02-05] MEDS: DEXAMETHASONE SOD PHOSPHATE 4 MG/ML 1ML VIAL IV SCH (11:22)
[2020-02-05] MEDS: PROPOFOL 1000 MG/100 ML 100 ML IV SCH ×4 (13:28→19:28)
[2020-02-05] MEDS: DEXMEDETOMIDINE HCL 400 MCG in SODIUM CHLORIDE 0.9% 96 ML IV PRN (15:30)
--- NOTE | 2020-02-05 15:31 | NUR ---
prone pt repositioned from supine to prone position. pt tolerated repositioning w/no s/s distress noted. will cont to monitor.
[2020-02-05 16:21] LABS: ABG BASE EXCESS -4.6 mmol/L (-2.0-3.0); ABG HCO3 22.4 mmol/L (21.0-28.0); ABG OXYGEN SATURATION 94.2 % (95.0-99.0); ABG PCO2 49 mmHg (35-48)
--- NOTE | 2020-02-05 16:30 | NUR ---
abg results message left for dr. ward w/results of repeat abg results after proning pt. awaiting orders at this time. will cont to monitor.
--- NOTE | 2020-02-05 19:30 | NUR ---
Received patient Received patient in prone position. No distress noted. Fentanyl at 250, Diprivan at 50, and Precedex at 1.5.. Will continue to monitor and follow plan of care
[2020-02-06] VITALS (34 sets, daily range): BP systolic 91–142; BP diastolic 55–81
[2020-02-06] MEDS: INSULIN HUMULIN R 100 UNIT/ML 3ML SQ SCH ×8 (00:14→19:54)
[2020-02-06] MEDS: METOPROLOL TARTRATE 1 MG/ML 5ML VIAL IV SCH ×4 (03:00→19:08)
[2020-02-06 03:52] LABS: BASOPHILS % (AUTO) 0.3 % (0.0-5.0); EOSINOPHILS % (AUTO) 0.2 % (0.0-8.0); HEMATOCRIT 38.9 % (42-54); LYMPHOCYTES % (AUTO) 5.5 % (21.0-51.0); MEAN CORPUSCULAR HGB CONC 32.1 g/dL (32.0-36.0); MEAN CORPUSCULAR VOLUME 90.3 fL (79-99); MONOCYTES % (AUTO) 6.4 % (3.0-13.0); NUCLEATED RED BLOOD CELLS 0.2 % (0.0-0.19); PLATELET COUNT (AUTO) 185 K/uL (130-400); RED BLOOD CELL COUNT(AUTO) 4.31 MIL/uL (4.50-6.20); RED CELL DISTRIBUTION WIDTH 14.1 % (11.0-15.5); WHITE BLOOD COUNT (AUTO) 12.3 K/uL (4.8-10.8)
[2020-02-06 04:13] LABS: ALBUMIN 1.7 g/dL (3.5-5.0); BILIRUBIN,TOTAL 0.3 mg/dL (0.2-1.0); CREATININE 1.5 mg/dL (0.5-1.5); CRP QUANTITATIVE 64.3 mg/L (0.00-9.0); POTASSIUM 5.6 mmol/L (3.5-5.1); TOTAL PROTEIN, SERUM 5.9 g/dL (6.0-8.3)
[2020-02-06] MEDS: INSULIN NPH 100 UNIT/ML 3ML SQ SCH ×2 (07:15→17:10)
[2020-02-06] MEDS: AMLODIPINE BESYLATE 5 MG TAB PO SCH (09:00)
[2020-02-06 10:11] LABS: ABG BASE EXCESS -4.4 mmol/L (-2.0-3.0); ABG HCO3 22.7 mmol/L (21.0-28.0); ABG OXYGEN SATURATION 85.1 % (95.0-99.0); ABG PCO2 50 mmHg (35-48)
[2020-02-06] MEDS: MEROPENEM 1 GM VIAL IVP SCH ×2 (10:59→19:29)
[2020-02-06] MEDS: FAMOTIDINE/PF 20 MG/2 ML VIAL IV SCH (10:59)
[2020-02-06] MEDS: ACETYLCYSTEINE 600 MG CAPSULE PO SCH ×2 (11:07→20:52)
[2020-02-06] MEDS: ZINC SULFATE 220 CAPSULE PO SCH (11:07)
[2020-02-06] MEDS: LINEZOLID 600 MG/ISO-OSM 300 ML IV SCH ×2 (11:08→19:29)
[2020-02-06] MEDS: DEXAMETHASONE SOD PHOSPHATE 4 MG/ML 1ML VIAL IV SCH (11:08)
[2020-02-06] MEDS: ENOXAPARIN SODIUM 60 MG/0.6 ML SQ SCH (11:08)
[2020-02-06] MEDS: PROPOFOL 1000 MG/100 ML 100 ML IV SCH ×5 (11:09→19:31)
[2020-02-06] MEDS: FLUCONAZOLE 100 MG TAB NG SCH ×2 (11:10→20:51)
[2020-02-06] MEDS: ASCORBIC ACID 500 MG TAB PO SCH (11:10)
[2020-02-06] MEDS: SODIUM BICARBONATE 650 MG TAB PO SCH ×2 (11:12→20:52)
[2020-02-06] MEDS: MIDAZOLAM 100MG-0.9% NS 100ML 100ML BAG IV SCH (11:15)
[2020-02-06] MEDS: FENTANYL 2500MCG+NS 250ML 250 ML IV SCH (12:30)
[2020-02-06] MEDS: DEXMEDETOMIDINE HCL 400 MCG in SODIUM CHLORIDE 0.9% 96 ML IV PRN (16:45)
--- NOTE | 2020-02-06 19:04 | NUR ---
Received patient Received patient in prone position, no distress noted, 114/72, 57, 99% .. Fentanyl, Propofol and Precedex infusing. Will follow plan of care.
[2020-02-07] VITALS (34 sets, daily range): BP systolic 97–146; BP diastolic 49–97
[2020-02-07] MEDS: INSULIN HUMULIN R 100 UNIT/ML 3ML SQ SCH ×8 (00:13→21:00)
[2020-02-07] MEDS: METOPROLOL TARTRATE 1 MG/ML 5ML VIAL IV SCH ×4 (03:00→21:00)
[2020-02-07] MEDS ORDERED: DEXMEDETOMIDINE HCL 200 MCG/2 ML VIAL IV ONE (03:53)
[2020-02-07] MEDS ORDERED: SODIUM CHLORIDE 0.9% 100 ML IV ONE (03:56)
[2020-02-07 04:49] LABS: HEMATOCRIT 41.7 % (42-54); MEAN CORPUSCULAR HEMOGLOBIN 29.2 pg (27.0-33.0); MEAN CORPUSCULAR HGB CONC 31.9 g/dL (32.0-36.0); MEAN CORPUSCULAR VOLUME 91.4 fL (79-99); PLATELET COUNT (AUTO) 138 K/uL (130-400); RED BLOOD CELL COUNT(AUTO) 4.56 MIL/uL (4.50-6.20); RED CELL DISTRIBUTION WIDTH 14.1 % (11.0-15.5); WHITE BLOOD COUNT (AUTO) 16.7 K/uL (4.8-10.8)
[2020-02-07 05:07] LABS: ALBUMIN 1.8 g/dL (3.5-5.0); BILIRUBIN,TOTAL 0.4 mg/dL (0.2-1.0); CREATININE 1.4 mg/dL (0.5-1.5); TOTAL PROTEIN, SERUM 6.2 g/dL (6.0-8.3)
[2020-02-07 05:14] LABS: POTASSIUM 6.6 mmol/L (3.5-5.1)
[2020-02-07 05:16] LABS: LYMPHOCYTES % (MANUAL) 6 % (22-44); MONOCYTES % (MANUAL) 5 % (2-9); SEGMENTED NEUTROPHILS % 89 % (40-70)
[2020-02-07 05:17] LABS: MAN.DIFF COMMENT-IMPRESSION MANUAL DIFFERENTIAL
--- NOTE | 2020-02-07 05:26 | NUR ---
Potassium Critical Received Critical Lab of 2.5 for Potassium , spoke with Joslyn Quinn) . Received order for Kayexalate and to repeat K draw at 0900
[2020-02-07] MEDS ORDERED: SODIUM POLYSTYRENE SULFONATE 15 GM/60 ML ML PO SCH ×2 (05:30→21:30)
[2020-02-07 07:30] LABS: ABG BASE EXCESS -6.5 mmol/L (-2.0-3.0); ABG HCO3 20.4 mmol/L (21.0-28.0); ABG OXYGEN SATURATION 87.8 % (95.0-99.0); ABG PCO2 45 mmHg (35-48)
[2020-02-07] MEDS: LINEZOLID 600 MG/ISO-OSM 300 ML IV SCH ×2 (07:53→23:35)
[2020-02-07] MEDS: FLUCONAZOLE 100 MG TAB NG SCH ×2 (07:53→23:34)
[2020-02-07] MEDS: ASCORBIC ACID 500 MG TAB PO SCH (07:53)
[2020-02-07] MEDS: SODIUM BICARBONATE 650 MG TAB PO SCH ×2 (07:53→23:34)
[2020-02-07] MEDS: ZINC SULFATE 220 CAPSULE PO SCH (07:53)
[2020-02-07] MEDS: FAMOTIDINE/PF 20 MG/2 ML VIAL IV SCH (07:54)
[2020-02-07] MEDS: ENOXAPARIN SODIUM 60 MG/0.6 ML SQ SCH (07:54)
[2020-02-07] MEDS: FUROSEMIDE 10 MG/ML 4ML VIAL IV SCH (07:54)
[2020-02-07] MEDS: ACETYLCYSTEINE 600 MG CAPSULE PO SCH ×2 (09:00→21:00)
[2020-02-07] MEDS: AMLODIPINE BESYLATE 5 MG TAB PO SCH (09:00)
[2020-02-07] MEDS: FENTANYL 2500MCG+NS 250ML 250 ML IV SCH ×2 (09:20→17:06)
[2020-02-07] MEDS: MEROPENEM 1 GM VIAL IVP SCH ×2 (09:21→23:35)
[2020-02-07] MEDS: DEXAMETHASONE SOD PHOSPHATE 4 MG/ML 1ML VIAL IV SCH (09:21)
[2020-02-07] MEDS: PROPOFOL 1000 MG/100 ML 100 ML IV SCH ×4 (09:21→17:10)
[2020-02-07] MEDS: MIDAZOLAM 100MG-0.9% NS 100ML 100ML BAG IV SCH (11:15)
[2020-02-07] MEDS: DEXMEDETOMIDINE HCL 400 MCG in SODIUM CHLORIDE 0.9% 96 ML IV PRN (16:03)
[2020-02-07] MEDS: METHYLPREDNISOLONE SOD SUCC 125MG/2ML VIAL IVP SCH ×2 (17:02→23:35)
[2020-02-07] MEDS: INSULIN NPH 100 UNIT/ML 3ML SQ SCH (17:02)
[2020-02-08] VITALS (34 sets, daily range): BP systolic 46–183; BP diastolic 22–95
[2020-02-08] MEDS ORDERED: NOREPINEPHRINE 4MG/NS 250ML 250 ML IV SCH (02:15)
[2020-02-08] MEDS ORDERED: NOREPINEPHRINE 4MG/NS 250ML 250 ML IV ONE (02:21)
[2020-02-08] MEDS: MIDAZOLAM 100MG-0.9% NS 100ML 100ML BAG IV SCH ×2 (02:25→08:16)
[2020-02-08] MEDS: METOPROLOL TARTRATE 1 MG/ML 5ML VIAL IV SCH ×3 (03:00→15:00)
[2020-02-08] MEDS ORDERED: CISATRACURIUM BESYLATE 100 MG in SODIUM CHLORIDE 0.9% 100 ML IV SCH (03:00)
[2020-02-08] MEDS: INSULIN HUMULIN R 100 UNIT/ML 3ML SQ SCH ×6 (06:00→15:12)
[2020-02-08 06:43] LABS: BASOPHILS % (AUTO) 0.6 % (0.0-5.0); EOSINOPHILS % (AUTO) 13.6 % (0.0-8.0); LYMPHOCYTES % (AUTO) 2.6 % (21.0-51.0); MEAN CORPUSCULAR HEMOGLOBIN 28.9 pg (27.0-33.0); MEAN CORPUSCULAR HGB CONC 30.7 g/dL (32.0-36.0); MEAN CORPUSCULAR VOLUME 94.1 fL (79-99); MONOCYTES % (AUTO) 3.2 % (3.0-13.0); NEUTROPHILS % (AUTO) 77.8 % (40.0-77.0); NUCLEATED RED BLOOD CELLS 1.9 % (0.0-0.19); PLATELET COUNT (AUTO) 151 K/uL (130-400); RED BLOOD CELL COUNT(AUTO) 4.78 MIL/uL (4.50-6.20); RED CELL DISTRIBUTION WIDTH 14.8 % (11.0-15.5); WHITE BLOOD COUNT (AUTO) 8.8 K/uL (4.8-10.8)
[2020-02-08] MEDS: METHYLPREDNISOLONE SOD SUCC 125MG/2ML VIAL IVP SCH ×2 (06:57→08:17)
[2020-02-08 07:02] LABS: ALBUMIN 1.6 g/dL (3.5-5.0); BILIRUBIN,TOTAL 0.9 mg/dL (0.2-1.0); CREATININE 2.3 mg/dL (0.5-1.5); CRP QUANTITATIVE 178.7 mg/L (0.00-9.0); MAGNESIUM 2.8 mg/dL (1.80-2.40); PHOSPHORUS 8.2 mg/dL (2.5-4.9); POTASSIUM 5.5 mmol/L (3.5-5.1); TOTAL PROTEIN, SERUM 5.8 g/dL (6.0-8.3)
[2020-02-08 07:15] LABS: HEMOGLOBIN A1C 8.7 % (4.0-6.0)
[2020-02-08 08:09] LABS: ABG BASE EXCESS -15.3 mmol/L (-2.0-3.0); ABG HCO3 15.9 mmol/L (21.0-28.0); ABG OXYGEN SATURATION 72.9 % (95.0-99.0); ABG PCO2 60 mmHg (35-48)
[2020-02-08] MEDS: PROPOFOL 1000 MG/100 ML 100 ML IV SCH ×2 (08:16→12:38)
[2020-02-08] MEDS: ZINC SULFATE 220 CAPSULE PO SCH (08:16)
[2020-02-08] MEDS: FAMOTIDINE/PF 20 MG/2 ML VIAL IV SCH (08:16)
[2020-02-08] MEDS: MEROPENEM 1 GM VIAL IVP SCH (08:16)
[2020-02-08] MEDS: LINEZOLID 600 MG/ISO-OSM 300 ML IV SCH (08:17)
[2020-02-08] MEDS: ENOXAPARIN SODIUM 60 MG/0.6 ML SQ SCH (08:17)
[2020-02-08] MEDS: ASCORBIC ACID 500 MG TAB PO SCH (08:18)
[2020-02-08] MEDS: FUROSEMIDE 10 MG/ML 4ML VIAL IV SCH (08:18)
[2020-02-08] MEDS: SODIUM BICARBONATE 650 MG TAB PO SCH (08:18)
[2020-02-08] MEDS: FLUCONAZOLE 100 MG TAB NG SCH (08:18)
[2020-02-08] MEDS: AMLODIPINE BESYLATE 5 MG TAB PO SCH (08:19)
[2020-02-08 08:20] LABS: ABG BASE EXCESS -16.1 mmol/L (-2.0-3.0); ABG HCO3 15.5 mmol/L (21.0-28.0); ABG PCO2 61 mmHg (35-48)
[2020-02-08] MEDS ORDERED: SODIUM BICARB 8.4% 50ML SYRING 150 MEQ in DEXTROSE 5%-WATER 1,000 ML IV SCH (08:30)
[2020-02-08] MEDS ORDERED: SODIUM BICARB 50MEQ 50ML VIAL IV SCH ×2 (08:30→09:43)
[2020-02-08] MEDS ORDERED: VASOPRESSIN 40 UNITS in SODIUM CHLORIDE 0.9% 40 ML IV SCH (08:30)
[2020-02-08] MEDS ORDERED: NOREPINEPHRINE BITARTRATE 32 MG in SODIUM CHLORIDE 0.9% 250 ML IV PRN (08:30)
[2020-02-08] MEDS ORDERED: CALCIUM CHLORIDE 100 MG/ML 10 ML SYG IVP SCH ×2 (08:30→09:45)
[2020-02-08] MEDS ORDERED: SODIUM BICARB 50MEQ 50ML VIAL ONE (08:43)
[2020-02-08] MEDS ORDERED: LACTATED RINGERS 1000ML IV SCH (08:45)
[2020-02-08] MEDS: ACETYLCYSTEINE 600 MG CAPSULE PO SCH (09:00)
[2020-02-08] MEDS ORDERED: EPINEPHRINE 10 MG in SODIUM CHLORIDE 0.9% 240 ML IV PRN (09:45)
--- NOTE | 2020-02-08 10:52 | NUR ---
ABG RESULTS REVIEWED AT 0815. PT ALSO NOTED TO BE HYPOTENSIVE W/A MAP <55 MAXED OUT ON LEVOPHED AT THIS TIME. DR. RIDDLE NOTIFIED OF ABGS AND CURRENT VITAL SIGNS N/O FOR 2 AMPS BICARB, VASO GTT, CALCIUM CHLORIDE, VENT CHANGES, AND SODIUM BICARB DRIP. RT NOTIFIED AND ORDERS CARRIED OUT. AT 0945 PT CONTINUE TO BY HYPOTENSIVE W/BP MAINTAINING 70/30S. DR. RIDDLE NOTIFIED. N/O FOR EPI DRIP AND REPEAT ABGS, 2 AMPS BICARB AND ANOTHER CALCIUM CHLORIDE. ORDERS CARRIED OUT AT THIS TIME. TEMPERATURE ALSO NOTED TO BE 95.1. APPLIED BEAR HUGGER TO PT. WILL CONT TO MONITOR.
[2020-02-08 10:59] LABS: ABG BASE EXCESS -14.5 mmol/L (-2.0-3.0); ABG HCO3 16.9 mmol/L (21.0-28.0); ABG OXYGEN SATURATION 93.6 % (95.0-99.0); ABG PCO2 66 mmHg (35-48)
[2020-02-08] MEDS ORDERED: HYDROCORTISONE SOD SUCCINATE 100 MG/2 ML VIAL IV SCH (12:00)
--- NOTE | 2020-02-08 14:23 | NUR ---
PRONOUNCEMENT CALLED TO ROOM BY PRIMARY NURSE, PT IS DNR, NO HEART TONES, NO RESPIRATIONS, PT IS UNRESPONSIVE PRONOUNCED AT THIS TIME
--- NOTE | 2020-02-08 15:01 | NUR ---
AT 1200 THIS NURSE SET UP ZOOM VIDEO CHAT W/SPOUSE. THIS NURSE EDUCATED SPOUSE ON PTS CURRENT DECLINING CONDITION. THIS NURSE EDUCATED SPOUSE ON EVERY OPTION REGARDING PTS CURRENT TREATMENT AND PLAN OF CARE. THIS NURSE EXPLAINED TO SPOUSE PTS PROGNOSIS IS POOR. VERBALIZED UNDERSTANDING AND REQUESTED FURTHER INFORMATION REGARDING COMFORT CARE. THIS NURSE EXPLAIN TO SPOUSE WHAT WOULD HAPPEN IF PT WAS PLACED ON COMFORT CARE. VERBALIZED UNDERSTANDING AND TOLD THIS NURSE SHE WOULD MAKE A DECISION AT A LATER TIME. THIS NURSE VERBALIZED UNDERSTANDING AND REASSURED WE WOULD CONTINUE AGGRESSIVELY TREATING PT. AT 1315 CALLED THIS NURSE AGAIN AND WISHED FOR PT TO BE COMFORTABLE AND STOP ALL SUFFERING. THIS NURSE EDUCATED SPOUSE ON THE PROCESS OF WITHDRAW OF CARE ALONG WITH COMFORT CARE. VERBALIZED UNDERSTANDING. SECOND NURSE DEEPAK ZHOU WITNESSED TELEPHONE CONSENT FOR WITHDRAW OF CARE AND COMFORT MEASURES ONLY. PER FAMILY REQUEST AT 1410 PT WAS EXTUBATED AND COMFORT MEASURES WERE STARTED. AT 1420 PER TELE MONITOR PT NOTED NOT TO HAVE A HEART BEAT. UPON AUSCULTATION AND PALPATION NOT HEARTBEAT WAS OBTAINED. MATHEMATICS EDUCATION PROFESSOR NOTIFIED AND AWAITING FOR HOUSE TO PRONOUNCE TIME OF .
[2020-02-08] MEDS: INSULIN NPH 100 UNIT/ML 3ML SQ SCH (15:11)
--- NOTE | 2020-02-09 08:00 | NUR ---
Referral: Pt's spouse requesting assistance with home expenses for spouse who yesterday. SW contacted [facility] burial assistance program and [facility]; left messages to cb. Call back from [place]/ Burial assistance who stated spouse could request assistance from [facility] at home of her choice or SW could provide [facility] with family name/number and Mary could contact her. ZABRINA informed Mary this worker did not have consent to provide family name/contact and once SW made contact with spouse, information would be provided to spouse. 0822Telephone call to Pretty Bassett at number provided to this worker [phone]; Pretty informed me that she is pt's sister not spouse and provided SW with correct tel#. Call made to Mrs. Pretty Bassett [phone], voicemail left. 0920-Second call made to spouse; no answer & left voicemail. 1003-Call to pt's sister and informed her SW unable to reach pt's spouse. Per Sister she will f/u with her. 1044-Call from pt's spouse stating that messages were received but does not recall requesting information. SW offered condolences and provided empathetic listing for the loss of her spouse. SW provided information regarding Burial Assistance program and instructed her to notify her home of choice that she would like to be referred to [facility] assistance [facility] and that they will assist her through the process; spouse voiced an understanding but stated she will not select home until Wednesday. Pt's spouse also reported that pt's personal belongings/ telephone, clothes, remain at this facility and she would pick them up on Wednesday. ZABRINA made Director aware.
== END 2020-02-08 17:09 | disposition expired | DRG 207 ==
LOC: EDH 13:40 → EDHIP 17:19 → 2BH 01-26 13:20 → 2DH 01-27 18:59 → 2BH 01-27 19:12
PROVIDERS: ADMIT Family Medicine; ATTEND Family Medicine
PROC: 5A1955Z Respiratory Ventilation, Greater than 96 Consecutive Hours (ICD-10-PCS; principal; 2020-01-27)
PROC: 0BH17EZ Insertion of Endotracheal Airway into Trachea, Via Natural or Artificial Opening (ICD-10-PCS; 2020-01-27)
PROC: 5A09357 Assistance with Respiratory Ventilation, Less than 24 Consecutive Hours, Continuous Positive Airway Pressure (ICD-10-PCS; 2020-01-27)
PROC: XW13325 Transfusion of Convalescent Plasma (Nonautologous) into Peripheral Vein, Percutaneous Approach, New Technology Group 5 (ICD-10-PCS; 2020-01-27)
DX: U07.1 COVID-19 (principal); E11.10 Type 2 diabetes mellitus with ketoacidosis without coma; J96.01 Acute respiratory failure with hypoxia; J12.89 Other viral pneumonia; A41.89 Other specified sepsis; J15.9 Unspecified bacterial pneumonia; N17.9 Acute kidney failure, unspecified; Z99.11 Dependence on respirator [ventilator] status; E87.1 Hypo-osmolality and hyponatremia; E87.0 Hyperosmolality and hypernatremia; Z68.42 Body mass index [BMI] 45.0-49.9, adult; E87.5 Hyperkalemia; E11.22 Type 2 diabetes mellitus with diabetic chronic kidney disease; I12.9 Hypertensive chronic kidney disease with stage 1 through stage 4 chronic kidney disease, or unspecified chronic kidney disease; E66.9 Obesity, unspecified; N18.9 Chronic kidney disease, unspecified; T38.0X5A Adverse effect of glucocorticoids and synthetic analogues, initial encounter; Y92.89 Other specified places as the place of occurrence of the external cause; Z66 Do not resuscitate; Z74.01 Bed confinement status; Z79.4 Long term (current) use of insulin; Z90.49 Acquired absence of other specified parts of digestive tract; Z91.19 Patient's noncompliance with other medical treatment and regimen
CPT/HCPCS: 31500; 36415; 36600; 71045; 74018; 76770; 80048; 80053; 80305; 81001; 82010; 82435; 82550; 82728; 82803; 82947; 82948; 83036; 83605; 83615; 83735; 83874; 83880; 84100; 84132; 84145; 84295; 84484; 85018; 85025; 85378; 85610; 85730; 86140; 86900; 86901; 86927; 87040; 87071; 87077; 87088; 87186; 87205; 87804; 93005; 93970; 94002; 94003; 94660; 99291; A4344; C1751; C1894; G0378; J0360; J0456; J0696; J1100; J1650; J1720; J1815; J1940; J2020; J2060; J2185; J2704; J2930; J3010; J3475; J3490; J7030; J7042; J7050; J7070; U0003